=== PATIENT | female | born 1935 | race Caucasian/White ===

== ENCOUNTER → 2020-01-08 | Outpatient (CLI) | payer MEDICARE ==
--- NOTE | 2020-01-08 11:46 | WOMENS IMAGING REPORT ---
EXAM DESCRIPTION: BONE DENSITY HIP/SPINE IMAGES COMPLETED DATE/TIME: 01/08/2020 11:13 am REASON FOR STUDY: M81.0 BONE DENSITY M81.0 AGE-RELATED OSTEOPOROSIS W/O CURRENT PATHOLOGICAL FRAC N 63.13 COMPARISON: 2009, 2012 TECHNIQUE: Dual-Energy X-ray Absorptiometry (DEXA) of the AP Spine and Hip. LIMITATIONS: None. FINDINGS: LUMBAR SPINE: The bone mineral density (BMD) measured from L1-L4 in the AP projection correlates with a T-score of -1.6, which is osteopenic as defined by the World Health Organization. BMD Change vs Baseline: This is similar compared to 2013. HIP: The bone mineral density (BMD) measured in the left femoral neck at the hip correlates with a T-score of -1.5, which is osteopenic as defined by the World Health Organization. BMD Change vs Baseline: N/A 10 year Fracture Risk Assessment: Major Osteoporotic Fracture: 12% Hip Fracture: 3.2% IMPRESSION: 1. LUMBAR SPINE WHO CLASSIFICATION: Osteopenic 2. HIP WHO CLASSIFICATION: Osteopenic OVERALL ASSESSMENT: WHO CLASSIFICATION: Osteopenic COMMENT: The World Health Organization defines low BMD as follows: T-score: Normal: Greater than -1.0 Osteopenia: Between -1.0 and -2.5 Osteoporosis: Less than -2.5 without fractures Established osteoporosis: Less than -2.5 with fractures In general, you may wish to consider: Diagnosis Treatment Follow-up DEXA Normal BMD Prevention 2-3 years Osteopenia Prevention/Therapy 1-2 years Osteoporosis Therapy Yearly TECHNICAL DOCUMENTATION: JOB ID: [id number] 2010 [email or web address]- All Rights Reserved Reading location - IP/workstation name: [id number]
--- NOTE | 2020-01-08 17:17 | WOMENS IMAGING REPORT ---
EXAM DESCRIPTION: 3D DX MAMMO BILAT; U/S BREAST UNILAT LIMITED; U/S BREAST UNILATERAL, COMPL IMAGES COMPLETED DATE/TIME: 01/08/2020 10:12 am; 01/08/2020 10:55 am; 01/08/2020 10:54 am REASON FOR STUDY: D48.61 BILAT DX; LEFT BREAST N63.23; RT BREAST LUMP M81.0 AGE-RELATED OSTEOPOROSI S W/O CURRENT PATHOLOGICAL FRAC N63.13 COMPARISON: None. EXAM PARAMETERS: Standard craniocaudal and mediolateral oblique views of each breast recorded using digital acquisition and breast tomosynthesis. Additional right breast 90 mediolateral view and exaggerated craniocaudad view Bilateral breast ultrasound was also performed. Read with the assistance of CAD: .[facility] - [employer] Developer Version 9.2 LIMITATIONS: None. FINDINGS: RIGHT BREAST MASSES: In the right breast upper outer quadrant, about 8 cm from the nipple, a 1.5 cm spiculated lola mographic mass present highly suspicious for malignancy. CALCIFICATIONS: No new or suspicious calcifications. ARCHITECTURAL DISTORTION: None. ASYMMETRY: None noted. OTHER: No other significant findings. LEFT BREAST MASSES: In the 5 o'clock position, there is a periareolar subcentimeter mammographic mass subsequentl y shown at ultrasound to represent a 7 mm breast cyst. CALCIFICATIONS: No new or suspicious calcifications. ARCHITECTURAL DISTORTION: None. ASYMMETRY: None noted. OTHER: No other significant finding. Bilateral breast ultrasound: On the right side, palpable abnormality right breast was examined with ultrasound. About 8 cm from t he nipple, a 1.5 cm hypoechoic solid mass is present with ill-defined margins acoustic absorption hig hly suspicious for malignancy. This correlates with the mammographic mass seen today. Ultrasound-gu ided core biopsy, post biopsy clip placement and immediate follow-up two-view mammogram recommended. This procedure should be performed as soon as pandemic restrictions are lifted. BI-RADS 5 On the left side, in the inferior retroareolar region, a 7 mm anechoic cyst is present which correlat es with mammographic findings. This is a benign finding which requires no further specific followup IMPRESSION: Malignant mass right breast upper outer quadrant seen at both tomosynthesis/mammography and ultrasound. This correlates with the patient's palpable abnormality. Ultrasound-guided core bio psy, post biopsy clip placement and follow-up two-view mammogram should be performed (BI-RADS 5) BREAST DENSITY: b. There are scattered areas of fibroglandular density. BIRAD: ASSESSMENT: 5 Highly suggestive of malignancy. Biopsy should be performed in the absence of clinical contra-indication. This case should be prioritized once COVID restrictions are lifted. RECOMMENDATION: RECOMMENDED FOLLOW UP: Ultrasound-guided right breast core biopsy with post biopsy c lip placement and follow-up two-view mammogram SPECIFIC INTERVENTION/IMAGING/CONSULTATION RECOMMENDED:Ultrasound-guided right breast core biopsy wit h post biopsy clip placement and follow-up two-view mammogram COMMUNICATION:Patient notified by letter COMMENT: The patient has been notified of the results by letter per [place] requirements. Additional no tification policies are in place for contacting patient with suspicious or incomplete findings. Quality ID #[id number]: The [employer] recommends an annual screening mammogram for women aged 40 years or over. This facility utilizes a reminder system to ensure that all patients receive reminder letters, and/or direct phone calls for appointments. This includes reminders for routine scr eening mammograms, diagnostic mammograms, or other Breast Imaging Interventions when appropriate. Th is patient will be placed in the appropriate reminder system. TECHNICAL DOCUMENTATION: FINDING NUMBER: (1) ASSESSMENT: (1) JOB ID: [id number] 2010 [employer]- All Rights Reserved Reading location - IP/workstation name: [id number]
== END ==
LOC: WI 09:20
PROVIDERS: ATTEND Physician Assistant
DX: M81.0 Age-related osteoporosis without current pathological fracture (principal); D48.61 Neoplasm of uncertain behavior of right breast
CPT/HCPCS: 76641; 76642; 77066; 77080; G0279; 77062

== ENCOUNTER → 2020-07-12 | Outpatient (CLI) | payer MEDICARE ==
--- NOTE | 2020-07-13 07:52 | WOMENS IMAGING REPORT ---
EXAM DESCRIPTION: BILAT DIAGNOSTIC MAMMO W/CAD IMAGES COMPLETED DATE/TIME: 07/12/2020 9:50 am REASON FOR STUDY: N63.0 UNSPECIFIED LUMP IN UNSPECIFIED BREAST N63.0 UNSPECIFIED LUMP IN UNSPECIFIE D BREAST N64.4 MASTODYNIA COMPARISON: Digital diagnostic tomosynthesis bilateral screening mammogram dated 01/08/2020 EXAM PARAMETERS: Standard craniocaudal and mediolateral oblique views of each breast recorded using digital acquisition. Read with the assistance of CAD: .[facility] - [employer] Operator Version 9.2 LIMITATIONS: None. FINDINGS: RIGHT BREAST MASSES: No suspicious masses. CALCIFICATIONS: No new or suspicious calcifications. ARCHITECTURAL DISTORTION: Status post right breast lumpectomy since the previous examination. Posts urgical changes at the lumpectomy site with scar tissue present. ASYMMETRY: None noted. OTHER: No other significant findings. LEFT BREAST MASSES: In the periareolar region, small masses are present, unchanged from the prior study. CALCIFICATIONS: No new or suspicious calcifications. ARCHITECTURAL DISTORTION: None. ASYMMETRY: None noted. OTHER: No other significant finding. BREAST ULTRASOUND: TECHNIQUE: Static and dynamic grayscale images acquired of the left breast in the specific areas of c linical/mammographic concern. Selected color Doppler images recorded. ELASTOGRAPHY PERFORMED: No. LIMITATIONS: None. FINDINGS: MASS: The lower outer quadrant of the left breast was scanned from the 3 to 6 o'clock axis. There a re multiple subcentimeter cysts in the periareolar region, mainly between 4- 6 o'clock axis. One of the largest is noted at the 6 o'clock axis which measures 5 mm. These findings likely correlate to t he left breast mammogram. ELASTOGRAPHY CHARACTERISTICS:Not applicable. OTHER: No other significant finding. IMPRESSION: 1. Status post Right breast lumpectomy since the previous examination dated 01/08/2020. 2. Stable Left breast mammogram. Multiple subcentimeter periareolar cysts on ultrasound examination . BREAST DENSITY: b. There are scattered areas of fibroglandular density. BIRAD: ASSESSMENT: 2 Benign findings. RECOMMENDATION: 1. Follow lumpectomy protocol. COMMENT: The patient has been notified of the results by letter per [place]Q[facility] requirements. Additional no tification policies are in place for contacting patient with suspicious or incomplete findings. Quality ID #[id number]: The [employer] recommends an annual screening mammogram for women aged 40 years or over. This facility utilizes a reminder system to ensure that all patients receive reminder letters, and/or direct phone calls for appointments. This includes reminders for routine scr eening mammograms, diagnostic mammograms, or other Breast Imaging Interventions when appropriate. Th is patient will be placed in the appropriate reminder system. TECHNICAL DOCUMENTATION: FINDING NUMBER: (1) ASSESSMENT: (1) JOB ID: [id number] 2010 [employer]- All Rights Reserved Reading location - IP/workstation name: [id number]
--- NOTE | 2020-07-13 07:52 | WOMENS IMAGING REPORT ---
EXAM DESCRIPTION: U/S BREAST UNILAT LIMITED COMPLETE DATE/TIME: 07/12/2020 10:40 am REASON FOR STUDY: LT BREAST N63.0 N63.0 UNSPECIFIED LUMP IN UNSPECIFIED BREAST N64.4 MASTODYNIA FINDINGS: Please see combined report for performance of procedure and radiologic supervision and int erpretation. IMPRESSION: Please see combined report for performance of procedure and radiologic supervision and i nterpretation. Reading location - IP/workstation name: [id number]
== END ==
LOC: WI 09:06
PROVIDERS: ATTEND Surgery
DX: N60.02 Solitary cyst of left breast (principal); N64.4 Mastodynia
CPT/HCPCS: 76642; 77066